=== PATIENT | male | born 1930 | race Caucasian/White ===

== ENCOUNTER → 2021-09-22 | Outpatient (CLI) | payer MEDICARE, BC ==
[2021-09-22 15:11] LABS: CHOLESTEROL RISK RATIO 3.291 (<5)
[2021-09-22 15:19] LABS: HEMOGLOBIN A1c 5.6 %
--- NOTE | 2021-09-22 15:19 | REP ---
INDICATION: Assess stenosis TECHNIQUE: Carotid ultrasonography was performed bilaterally FINDINGS: Right: CCA systolic: 79.2 centimeters/second CCA diastolic: 10.3 centimeters/second ICA systolic: 180.5 centimeters/second ICA diastolic: 37.0 centimeters/second ICA CCA ratio: 2.3 Left: CCA systolic: 93.2 centimeters/second CCA diastolic: 13.2 centimeters/second ICA systolic: 94.5 centimeters/second ICA diastolic: 22.5 centimeters/second ICA CCA ratio: 1.0 Vertebral artery: Right: Antegrade flow left: Antegrade flow Echogenic material seen along the carotid arterial briseno some of which casts and acoustic shadow IMPRESSION: According to the SRU criteria 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 This is secondary to both calcified and noncalcified atheromatous plaque formation. There is also less than 50% stenosis of the left internal carotid artery. <Electronically signed by Robert Leary > 09/22/21 1327
== END ==
LOC: M RAD 13:55 → M LAB 13:55
PROVIDERS: ATTEND Nurse Practitioner Family
DX: I65.21 Occlusion and stenosis of right carotid artery (principal); R73.01 Impaired fasting glucose